=== PATIENT | male | born 1950 | race African-American/Black ===

== ENCOUNTER 2019-06-12 09:03 | Outpatient (CLI) | payer MEDICARE, OTHER, SELFPAY ==
[2019-06-12 09:47] LABS: Estimated Glomerular Filt Rate > 60
== END 2019-06-12 09:04 | disposition home or self-care (01) ==
PROVIDERS: Visit Provider Orthopaedic Surgery
DX: M17.11 Unilateral primary osteoarthritis, right knee (principal)
CPT/HCPCS: 36415; 82040; 82565

== ENCOUNTER 2019-10-11 13:44 | Outpatient (CLI) | payer MEDICARE, OTHER, SELFPAY ==
[2019-10-11 15:08] LABS: Basophils Percent Auto 0.9 % (0.2-1.2); Eosinophils Absolute Auto 0.3 K/mm3 (0-0.3); Eosinophils Percent Auto 7.4 % (0-4.4); Hematocrit 44.4 % (42.0-52.0); Hemoglobin 14.4 g/dL (14.0-18.0); Immature Granulocyte Absolute 0.02 K/mm3 (0.00-0.031); Immature Granulocyte Percent A 0.5 % (0-0.5); Lymphocytes Absolute Auto 1.21 K/mm3 (0.9-3.2); Lymphocytes Percent Auto 27.3 % (18.3-44.2); Mean Corpuscular HGB Conc 32.4 g/dl (32-36); Mean Corpuscular Volume 86.4 fl (80-100); Mean Platelet Volume 11.2 fl (7.4-10.4); Monocytes Absolute Auto 0.6 K/mm3 (0.1-0.6); Monocytes Percent Auto 13.5 % (2.6-8.5); Neutrophils Absolute Auto 2.2 K/mm3 (1.3-6.7); Neutrophils Percent Auto 50.4 % (45.5-73.1); Platelet Count Result 192 k/mm3 (150-375); Red Blood Count 5.14 M/mm3 (4.6-6.20); Red Cell Distribution Width 14.3 % (11.5-14.5); White Blood Count 4.4 K/mm3 (4.5-10.0)
[2019-10-11 15:19] LABS: Hemoglobin A1C 6.4 % (<5.7)
[2019-10-11 15:21] LABS: Estimated Glomerular Filt Rate > 60; Glucose 92 mg/dL (75-110)
[2019-10-11 15:23] LABS: Urine Cotinine NEGATIVE
== END 2019-10-11 13:45 | disposition home or self-care (01) ==
PROVIDERS: PCP Internal Medicine Geriatric Medicine; Visit Provider Orthopaedic Surgery
DX: M17.0 Bilateral primary osteoarthritis of knee (principal)
CPT/HCPCS: 36415; 80307; 82040; 82565; 82947; 83036; 85025; 87081

== ENCOUNTER 2019-10-30 00:01 | Outpatient (CLI) | payer MEDICARE, OTHER, SELFPAY ==
[2019-10-30 18:54] LABS: SARS-CoV-2 RNA PCR Negative
== END 2019-10-30 00:02 | disposition home or self-care (01) ==
LOC: ANHCOVIDDT 00:02
PROVIDERS: PCP Internal Medicine Geriatric Medicine; Visit Provider Orthopaedic Surgery
DX: Z01.812 Encounter for preprocedural laboratory examination (principal); Z11.59 Encounter for screening for other viral diseases
CPT/HCPCS: 87635; C9803; U0003

== ENCOUNTER 2019-11-02 03:41 | Day surgery (SDC) | payer MEDICARE, OTHER, SELFPAY ==
[2019-10-11 13:54] VITALS: BMI 41.1
[2019-10-11 14:10] VITALS: BP 168/90; PULSE 68; RESP 20; TEMP 36.5; O2SAT 95
[2019-11-02] VITALS (14 sets, daily range): BP systolic 120–160; BP diastolic 70–96; PULSE 63–81; RESP 11–16; TEMP 36.2–36.6; O2SAT 94–100; BMI 40.6
--- NOTE | ~2019-11-02 | XR_ITS ---
EXAMINATION: XR knee RT 2V EXAM DATE: 11/02/2019 09:53 INDICATION: Postoperative right knee. TECHNIQUE: Right knee frontal and lateral projections. Comparison is made to prior examination from 06/12/2019. FINDINGS: There is been recent total knee arthroplasty, with subcutaneous gas, gas in the knee joint . Orthopedic hardware is in expected position. IMPRESSION: Right knee replacement in expected position. Reviewed, dictated and finalized at location B.
[2019-11-02] MEDS: LACTATED RINGERS 1,000 ML 30 ML IV CONT ×2 (06:25→09:43)
[2019-11-02] MEDS: TRANEXAMIC ACID 1,000MG/ISO100 1,000 MG/100 ML BAG 200 MG IVPB (06:59)
--- NOTE | 2019-11-02 07:09 | WPDANESEPPF ---
Anes - Initial Pre Proc Eval Procedure: Operation Date: 11/02/19 07:30 Proposed Procedures p Right Total Knee Arthroplasty - Juancarlos Clemons MD Date/Time: 11/02/19 07:09 Surgeon: Juancarlos Clemons MD Pre Op Diagnosis: Right Knee Osteoarthritis Patient Data Age: 69 Gender: M Height: 5 ft 7 in Weight: 117.8 kg Last Vital Signs Temp 36.2 C L 11/02/19 06:42 Pulse 68 11/02/19 06:42 Resp 16 11/02/19 06:42 BP 120/75 11/02/19 06:42 Pulse Ox 98 11/02/19 06:42 Allergies Allergy/AdvReac Type Severity Reaction Status Date / Time Iodinated Contrast Media Allergy Unknown LOWER LEG Verified 11/02/19 06:02 PAIN Home Medications Medication Instructions Recorded Confirmed Type albuterol sulfate 90 mcg/actuation 1 inhalation INHALATION Q4-6H 06/12/19 11/02/19 History breath activated powder inhaler amlodipine 10 mg tablet 10 mg PO DAILY 06/12/19 11/02/19 History budesonide-formoterol HFA 160 2 puff INHALATION Q12H 06/12/19 11/02/19 History mcg-4.5 mcg/actuation aerosol inhaler carvedilol 25 mg tablet 25 mg PO Q12H 06/12/19 11/02/19 History ergocalciferol (vitamin D2) 1,250 1,250 mcg PO WEEKLY 06/12/19 11/02/19 History mcg (50,000 unit) capsule omeprazole 20 mg capsule,delayed 40 mg PO DAILY 06/12/19 11/02/19 History release potassium chloride 10 mEq 10 meq PO BID 06/12/19 11/02/19 History tablet,extended release olmesartan 40 mg PO HS 10/11/19 11/02/19 History Patient hx anesthesia problems: none Family hx anesthesia problems: none PMFSH Past Medical History Medical History (Updated 11/02/19 @ 07:11 by Ronald Zapata MD) GERD (gastroesophageal reflux disease) Hyperlipidemia Hypertension MERRILL (obstructive sleep apnea) Osteoarthritis of both knees Osteoarthritis of right knee Surgical History Surgical History History of repair of rotator cuff (~01/2018) History of repair of rotator cuff (~08/2016) Family History Family History Father Malignant neoplasm of prostate Social History Social History Smoking status: Never smoker Alcohol intake: never Anes - Eval Final PreProcedure Day of Procedure 11/02/19 07:09 Patient weight: morbidly obese Heart: regular rate and rhythm Lungs: clear to auscultation Airway: Mallampati scale class II Neurological: alert and oriented Last oral intake: >/= 8 hours ASA classification: III Emergent: no Anesthetic plan: proceed Anesthesia type and monitoring: general LMA and standard monitoring Informed Consent: The patient's anesthetic plan and its attendant risks and benefits were discussed with the patient/family/POA. Questions were solicited and answers provided to the satisfaction of the patient/family/POA.
--- NOTE | 2019-11-02 07:18 | WPDHPUPDATE1 ---
History and Physical Update Update Date/Time: 11/02/19 07:18 History and Physical has been reviewed, including an updated exam of the patient. There are NO changes in the patient's condition. Risks, benefits, and alternatives have been discussed and questions answered. Patient agrees to proceed with procedure.
[2019-11-02] MEDS: ceFAZolin 2 GM/D5W 50 ML 2 GM/50 ML BAG IVPB (07:25)
--- NOTE | 2019-11-02 07:25 | WPDANESPNB ---
Anes - Peripheral Nerve Block Date/Time: 11/02/19 07:25 I have discussed with the patient/family/POA the placement of a peripheral nerve block for post-operative pain management, including associated risks, benefits, complications, and side effects. Alternative methods of post-operative analgesia were detailed. Questions were solicited and answers provided to the satisfaction of the patient/family/POA. Time-Out: A pre-procedural Time-Out was completed immediately before starting the procedure and confirmed: Patient Identification, Site, Procedure, Patient Position and the Availability of Requisite Equipment. Clinical Indications: Acute post-operative pain management requested by the operative surgeon. Nerve Block Insertion Note Anes-nerve block: adductor canal right Patient position: supine Skin prep: chlorhexidine Needle: 22 gauge, stimulating, insulated echogenic needle. Needle length: 80 mm Technique: ultrasound Technique comment: mid2mg,[id number] Injectate: bupivacaine 0.5% with epi 5 mcg/ml (30ml) and dexamethasone (mg) (4) Observations: tolerated well Complications: none Procedure start time:: 718 Procedure end time:: 724
[2019-11-02] MEDS: GENTAMICIN BONE CEMENT REFOBACIN 1 EACH TOPICAL (08:06)
--- NOTE | 2019-11-02 10:14 | P.OP_ITS ---
Procedure Note - Detailed Date of procedure: 11/02/19 Pre-op diagnosis: Right Knee Osteoarthritis Post-op diagnosis: same Procedure performed: Total knee arthroplasty, right Description of procedure: Total knee arthroplasty performed with standard bone resections. 5 degree valgus femoral cut. 8 mm distal resection. PCL quality was excellent. A mild medial release was performed. Bone quality was excellent. Implants: [place] [employer] size 5 press-fit femur, size 6 cemented low-profile tibia, 11 mm Cruciate retaining polyethylene insert, 38mm asymmetric metal backed patellar component. Anesthesia: GETA and regional (subsartorial nerve block) Surgeon: Juancarlos Clemons MD Estimated blood loss (mL): 150 Drains: No Complications: None Condition: stable Disposition: PACU Findings: OPERATIVE DETAILS: The patient was given a nerve block preoperatively, and then brought to the operating room. A general anesthetic was administered. The leg was prepped and draped in the usual sterile fashion. The limb was elevated and the tourniquet inflated to 300 mmHg during initial exposure, and cementation. A longitudinal incision was created along the medial border of the patella and patellar tendon, and a minimally invasive optimized mid-vastus approach to the knee was performed. A minimal medial release was taken. The knee was then flexed. The osteophytes were carefully removed. The intramedullary guide was placed in the femoral canal. The distal femoral resection was then taken with the oscillating saw. The collateral ligaments wer e carefully protected. The tibia was carefully exposed. The jig was applied, and the proximal tibia was resected according to preoperative plan. The knee was balanced in extension. Appropriate releases were taken where needed. The anterior cruciate ligament and meniscal remnants were removed. The posterior cruciate ligament was preserved. The patella was measured. Patellar resection was carried out with the oscillating saw. The lug holes drilled. The femur was sized and rotation assessed using a combination of gap balancing, posterior referencing, and the AP axis. The 4 in 1 cutting block was used to finish the femoral cuts after equal gaps were assured. The lug holes were drilled. The osteophytes were carefully removed from the back of the knee. The knee was copiously irrigated with antibiotic solution periodically throughout the procedure. The meniscal remnants were removed. The spacer block was used to confirm equal flexion and extension gaps. Further releases were performed as needed. The tibia was sized and broached. The bony surfaces were prepared for cementing with pulsatile lavage. The real tibial component was cemented into position followed by press fitting the femoral component. Excess cement was carefully removed. The patella component was press-fit. Patellar tracking was carefully assessed. No additional releases were required. The wound was closed with #1 Vycril suture, #2 Quill suture, 0-Quill suture, and 2-0 Quill suture followed by Steri-Strips. A sterile bulky dressing was applied. Meticulous hemostasis was maintained throughout the procedure. There were no complications. The patient was extubated and brought to the recovery room in stable condition after the application of sterile dressing with Nikko bandage.
--- NOTE | 2019-11-02 10:52 | ADMGEN ---
This patient, Matt Ospina Sr., was admitted to Medical Room 247-. Patient/family oriented to hospital policies and general routines including ID bracelet, bed and alarms, visiting hours, pain management, procedures, bathroom and other care routines, personal items, smoking policy, room service/diet, and visiting hours. Valuables list has been completed. Information on how to activate the Rapid Response Team has been discussed. Patient/Family are encouraged to report perceived risks to care and to ask questions if they do not understand what they are told or what they should do.
[2019-11-02] MEDS: SODIUM CHLORIDE 0.9% IV 1,000 ML 125 ML IV CONT (11:05)
[2019-11-02] MEDS: DOCUSATE SODIUM 100 MG CAPSULE PO (17:00)
[2019-11-02] MEDS: MELOXICAM 7.5 MG TABLET PO (17:00)
[2019-11-02] MEDS: POTASSIUM CHLORIDE 10 MEQ TABLET.ER PO (17:00)
--- NOTE | 2019-11-02 17:06 | PM.DS ---
DS: Admitting Diagnosis Admitting Diagnosis Admitting Diagnosis: Bilateral primary osteoarthritis of knee DS: Discharge Diagnosis Discharge Diagnosis (1) Status post total knee replacement, right: Code(s): Z96.651 - Presence of right artificial knee joint Status: Acute DS: Summary Hospital Course Reason for hospitalization: Total knee arthroplasty, 11/02/19 Hospital Course: Tolerated surgery well. Progressed appropriately with therapy. Status at Discharge Functional status at discharge: uses cane/walker Time Spent with Patient Time attestation: Total time spent providing and/or coordinating discharge services: Exam Const: General: no acute distress Resp: Effort & Inspection: normal respiratory effort Skin: Other: Wound healing well. Mepilex dressing intact. No hematoma or drainage. Neuro: Motor exam (neuro): 5/5 motor strength present throughout Sensory Exam: normal sensation Psych: Mental Status: mental status grossly normal Speech and movement: Normal speech and movement present DS: Data Data Completed and Pending Labs on day of discharge: Labs from last 24 hours 11/02/19 06:29 Blood Type O Positive Antibody Screen Negative Discharge Plan Discharge Patient Disposition: Home, Self-Care Discharge Instructions: See instruction sheet. Follow-up/Referrals: Juancarlos Clemons MD [Physician] - Discharge Medications: New meloxicam [Mobic] 7.5 mg Tablet 7.5 mg PO BID 28 Days Qty: 56 RF: 0 aspirin 325 mg Tablet,Delayed Release (Dr/Ec) 325 mg PO Q12HR 14 Days Qty: 28 RF: 0 oxycodone-acetaminophen 5-325 mg tablet 1 - 2 tablet PO Q4-6H MDD 8 tablets PRN (Reason: pain) Qty: 30 RF: 0 Continued carvedilol 25 mg tablet 25 mg PO Q12H RF: 0 amlodipine 10 mg tablet 10 mg PO DAILY RF: 0 potassium chloride [Klor-Con 10] 10 mEq tablet extended release 10 meq PO BID RF: 0 omeprazole 20 mg capsule,delayed release(DR/EC) 40 mg PO DAILY RF: 0 ergocalciferol (vitamin D2) [Vitamin D2] 1,250 mcg (50,000 unit) capsule 1,250 mcg PO WEEKLY RF: 0 budesonide-formoterol [Symbicort] 160-4.5 mcg/actuation HFA aerosol inhaler 2 puff INHALATION Q12H RF: 0 albuterol sulfate 90 mcg/actuation aerosol powdr breath activated 1 inhalation INHALATION Q4-6H RF: 0 olmesartan 40 mg Tablet 40 mg PO HS RF: 0 Quality VTE Prophylaxis VTE prophylaxis: mechanical ordered (RUSTAM cummings and Mable)
--- NOTE | 2019-11-02 17:07 | PM.PNORT ---
Progress Note: A&P Additional Plan Postoperative check. Patient comfortable. Alert and oriented. No complaints. Dressing intact. No drainage. Mild swelling. Neurologic intact distal. Reviewed care plan and restrictions in detail. Questions answered. Plan to discharge home tomorrow after therapy. Subjective Subjective Date/Time Seen: 11/02/19 17:07 Objective Data Vital Signs Vital Signs: Vital Signs - 24 hr 11/02/19 06:42 11/02/19 09:43 11/02/19 10:00 Temperature 36.2 C L 36.3 C L Pulse Rate 68 69 66 Respiratory Rate 16 11 L 12 Blood Pressure 120/75 160/90 H 151/75 H Pulse Oximetry 98 99 100 11/02/19 10:15 11/02/19 10:30 Temperature Pulse Rate 68 71 Respiratory Rate 12 12 Blood Pressure 143/84 H 157/85 H Pulse Oximetry 94 94 Intake/Output Intake/Output: Intake & Output 10/30/19 10/31/19 11/01/19 11/02/19 23:59 23:59 23:59 23:59 Intake Total 500 Balance 500 Meds/Results Medications: Active Medications Generic Name Dose Route Start Last Admin Trade Name Freq PRN Reason Stop Dose Admin Amlodipine Besylate 10 mg 11/03/19 09:00 Norvasc PO DAILY [facility] Aspirin 325 mg 11/02/19 21:00 Aspirin Ec PO Q12HR [facility] Budesonide/Formoterol Fumarate 2 puff 11/02/19 10:38 11/02/19 13:05 Symbicort 160-4.5 Mcg (*Sp) Inhaler INHALATION Not Given Q12H [facility] Carvedilol 25 mg 11/02/19 21:00 Coreg PO Q12HR [facility] Diazepam 5 mg 11/02/19 10:38 Valium Po PO Q8H PRN Spasms Docusate Sodium 100 mg 11/02/19 17:00 11/02/19 17:00 Colace Capsule PO 100 mg BID [facility] Administration Ergocalciferol 50,000 unit 11/07/19 09:00 Drisdol PO WEEKLY [facility] Sodium Chloride 1,000 mls @ 125 mls/hr 11/02/19 10:38 11/02/19 11:05 Normal Saline Iv IV CONT 125 mls/hr .Q8H [facility] Administration Cefazolin Sodium 1 gm in 50 mls @ 100 mls/hr 11/02/19 15:00 11/02/19 15:35 Ancef 1 Gm/D5w 50 Ml Pm IVPB 11/03/19 15:01 Infused Q8H [facility] Infusion Acetaminophen 1,000 mg in 100 mls @ 400 mls/hr 11/02/19 12:00 11/02/19 17:00 Ofirmev 1,000 Mg Ivpb IVPB 11/03/19 12:01 400 mls/hr Q6HR [facility] Administration Meloxicam 7.5 mg 11/02/19 17:00 11/02/19 17:00 Mobic PO 7.5 mg BID [facility] Administration Meperidine HCl 100 mg 11/02/19 10:38 Demerol IM Q3H PRN Breakthrough pain rated 7-10 Naloxone HCl 0.1 mg 11/02/19 10:38 Narcan IV PUSH Q2M PRN Opiate Reversal Non-Formulary Medication 1 inhalation 11/02/19 10:38 Albuterol Sulfate INHALATION 12/02/19 10:39 Q4-6H [facility] Olmesartan 40 mg 11/02/19 21:00 Benicar PO HS [facility] Ondansetron HCl 4 mg 11/02/19 10:38 Zofran Inj IV PUSH Q4H PRN Nausea And Vomiting Oxycodone HCl 5 mg 11/02/19 10:38 11/02/19 11:32 Roxicodone Ir Tablet PO 5 mg Q4H PRN Administration Pain Rated 4-6 Oxycodone HCl 10 mg 11/02/19 10:38 Roxicodone Ir Tablet PO Q4H PRN Pain Rated 7-10 Pantoprazole Sodium 40 mg 11/02/19 21:00 Protonix PO Q12HR [facility] Potassium Chloride 10 meq 11/02/19 17:00 11/02/19 17:00 Kcl Tablet PO 10 meq BID [facility] Administration Radiology Results: ITS Impressions Knee X-Ray 11/02/19 10:20 IMPRESSION: Right knee replacement in expected position. Labs Labs: Laboratory Results - last 24 hr 11/02/19 06:29 Blood Type O Positive Antibody Screen Negative Quality VTE Prophylaxis VTE prophylaxis: mechanical ordered (RUSTAM hose and SCDs)
[2019-11-02] MEDS: OLMESARTAN MEDOXOMIL 20 MG TABLET 40 MG PO (20:28)
[2019-11-02] MEDS: carvediloL 25 MG TABLET PO (20:28)
[2019-11-02] MEDS: ASPIRIN 325 MG ENTERIC TABLET PO (20:28)
[2019-11-02] MEDS: PANTOPRAZOLE 40 MG TABLET PO (20:29)
[2019-11-03 00:23] VITALS: BP 133/78; PULSE 72; RESP 12; TEMP 36.7; O2SAT 99
[2019-11-03] MEDS: WATER FOR IRRIGATION, STERILE 1,000 ML BOTTLE 1000 ML (02:45)
[2019-11-03 04:23] VITALS: BP 140/69; PULSE 71; RESP 16; TEMP 36.7; O2SAT 98
[2019-11-03 05:46] LABS: Basophils Percent Auto 0.2 % (0.2-1.2); Eosinophils Percent Auto 0.1 % (0-4.4); Hemoglobin 12.6 g/dL (14.0-18.0); Immature Granulocyte Absolute 0.07 K/mm3 (0.00-0.031); Immature Granulocyte Percent A 0.6 % (0-0.5); Lymphocytes Absolute Auto 1.01 K/mm3 (0.9-3.2); Lymphocytes Percent Auto 9.2 % (18.3-44.2); Mean Corpuscular HGB Conc 32.3 g/dl (32-36); Mean Corpuscular Hemoglobin 27.9 pg (26-34); Mean Corpuscular Volume 86.3 fl (80-100); Monocytes Absolute Auto 1.2 K/mm3 (0.1-0.6); Monocytes Percent Auto 10.8 % (2.6-8.5); Neutrophils Absolute Auto 8.7 K/mm3 (1.3-6.7); Neutrophils Percent Auto 79.1 % (45.5-73.1); Platelet Count Result 189 k/mm3 (150-375); Red Blood Count 4.52 M/mm3 (4.6-6.20); Red Cell Distribution Width 14.5 % (11.5-14.5)
[2019-11-03 05:57] LABS: Blood Urea Nitrogen 19 mg/dL (9-20); Calcium 9.7 mg/dL (8.4-10.2); Carbon Dioxide 28 mmol/L (22-30); Chloride 103 mmol/L (98-107); Estimated CRCL calculation 68 ml/min; Estimated Glomerular Filt Rate > 60; Glucose 136 mg/dL (75-110); Potassium 4.3 mmol/L (3.4-5.0); Sodium 137 mmol/L (137-145)
[2019-11-03 07:14] VITALS: O2SAT 95
[2019-11-03 08:43] VITALS: PULSE 72
[2019-11-03] MEDS: AMLODIPINE BESYLATE 5 MG TABLET 10 MG PO (08:43)
[2019-11-03] MEDS: carvediloL 25 MG TABLET PO (08:43)
[2019-11-03] MEDS: ASPIRIN 325 MG ENTERIC TABLET PO (08:43)
[2019-11-03] MEDS: POTASSIUM CHLORIDE 10 MEQ TABLET.ER PO (08:44)
[2019-11-03] MEDS: MELOXICAM 7.5 MG TABLET PO (08:44)
[2019-11-03] MEDS: PANTOPRAZOLE 40 MG TABLET PO (08:44)
[2019-11-03] MEDS: DOCUSATE SODIUM 100 MG CAPSULE PO (08:44)
[2019-11-03 10:00] VITALS: BP 141/74; PULSE 66; RESP 14; TEMP 36.3; O2SAT 98
== END 2019-11-03 11:50 | disposition home or self-care (01) ==
LOC: ANHSURGERY 05:53 → ANH2MED 10:43
PROVIDERS: PCP Internal Medicine Geriatric Medicine; Visit Provider Orthopaedic Surgery
PROC: (CPT 27447; principal; 2019-11-02 07:30)
DX: M17.11 Unilateral primary osteoarthritis, right knee (principal); G89.18 Other acute postprocedural pain; I10 Essential (primary) hypertension; E78.5 Hyperlipidemia, unspecified; G47.33 Obstructive sleep apnea (adult) (pediatric); K21.9 Gastro-esophageal reflux disease without esophagitis; E66.01 Morbid (severe) obesity due to excess calories; Z68.41 Body mass index [BMI] 40.0-44.9, adult
CPT/HCPCS: 27447; 64447; 36415; 73560; 80048; 85025; 86850; 86900; 86901; 94640; 97110; 97116; 97161; A9270; C1713; C1776; J0131; J0171; J0690; J1100; J1885; J2250; J2270; J2405; J2704; J2795; J3010; J7030; J7120

== ENCOUNTER 2020-06-05 14:17 | Outpatient (CLI) | payer MEDICARE, SELFPAY ==
[2020-06-05 15:18] LABS: Basophils Percent Auto 0.6 % (0.2-1.2); Eosinophils Absolute Auto 0.4 K/mm3 (0-0.3); Eosinophils Percent Auto 8.1 % (0-4.4); Hematocrit 39.3 % (42.0-52.0); Hemoglobin 12.4 g/dL (14.0-18.0); Immature Granulocyte Absolute 0.01 K/mm3 (0.00-0.031); Immature Granulocyte Percent A 0.2 % (0-0.5); Lymphocytes Absolute Auto 1.28 K/mm3 (0.9-3.2); Lymphocytes Percent Auto 26.5 % (18.3-44.2); Mean Corpuscular HGB Conc 31.6 g/dl (32-36); Mean Corpuscular Hemoglobin 26.8 pg (26-34); Mean Corpuscular Volume 85.1 fl (80-100); Mean Platelet Volume 11.1 fl (7.4-10.4); Monocytes Absolute Auto 0.7 K/mm3 (0.1-0.6); Monocytes Percent Auto 14.1 % (2.6-8.5); Neutrophils Absolute Auto 2.4 K/mm3 (1.3-6.7); Neutrophils Percent Auto 50.5 % (45.5-73.1); Platelet Count Result 250 k/mm3 (150-375); Red Blood Count 4.62 M/mm3 (4.6-6.20); Red Cell Distribution Width 15.3 % (11.5-14.5); White Blood Count 4.8 K/mm3 (4.5-10.0)
[2020-06-05 15:31] LABS: CRP 1.2 mg/dL (<1.0)
[2020-06-05 15:57] LABS: Erythrocyte Sedimentation Rate 39 mm/hr (0-20)
[2020-06-05 16:58] LABS: Source Synovial Fluid Synovial fluid
[2020-06-05 16:59] LABS: Appearance Synovial Fluid Bloody (Clear); Color Synovial Fluid Other (Colorless); Lymphocytes Synovial Fluid 58 %; Macrophages Synovial Fluid 29 %; Monocytes Synovial Fluid 7 %; Nucleated Cell Synovial Fluid 247 /uL (0-200); RBC Synovial Fluid 15875 /uL (0-0)
[2020-06-05 17:00] LABS: Neutrophils Synovial Fluid 6 % (0-25)
== END 2020-06-05 14:18 | disposition home or self-care (01) ==
LOC: ANHLAB 14:18
PROVIDERS: PCP Internal Medicine Geriatric Medicine; Visit Provider Orthopaedic Surgery
DX: T84.84XA Pain due to internal orthopedic prosthetic devices, implants and grafts, initial encounter (principal); Z96.651 Presence of right artificial knee joint
CPT/HCPCS: 36415; 85025; 85652; 86140; 87070; 87075; 87205; 89051